=== PATIENT | male | born 1980 | race African-American/Black ===

== ENCOUNTER 2018-09-27 17:25 | Emergency (ER) | payer MEDICAID ==
[~2018-09-27] VITALS: Ht 182.9 cm; Wt 100.2 kg
[2018-09-27 17:34] VITALS: BP 111/58
[2018-09-27] MEDS ORDERED: TRIAMCINOLONE 40MG/ML 1ML VIAL ONE (20:52)
[2018-09-27] MEDS ORDERED: TRIAMCINOLONE 40MG/ML 1ML VIAL IM ONE (21:30)
== END 2018-09-27 22:01 | disposition home or self-care (01) ==
LOC: ER 17:37
DX: K13.0 Diseases of lips (principal)
CPT/HCPCS: 96372; 99283; J3301